=== PATIENT | male | born 1945 | race Caucasian/White ===

== ENCOUNTER 2023-08-15 15:16 | Inpatient (IN) | payer MEDICARE, OTHER, SELFPAY ==
[2023-08-15] VITALS (11 sets, daily range): BP systolic 80–146; BP diastolic 54–93; BMI 28.2; BMI 27.8
[2023-08-15 09:49] LABS: COVID-19 Antigen Negative (Negative)
[2023-08-15] MEDS: NSS 1000 ML IV (10:32)
--- NOTE | 2023-08-15 10:41 | ED.GENMED ---
History of Present Illness
<Amina Rust PA-C - Last Filed: 08/15/23 12:43>
General
Chief Complaint: Cold/Flu/URI Symptoms
Source: patient
Exam Limitations: none
Time Seen by Provider: 08/15/23 09:38
Nursing documentation reviewed up to this point in time: agreed with
Travel History
Have you had any contact with someone who has COVID-19?: No
Do you have any symptoms of coronavirus? Fever > 100 degrees, chills, cough, shortness of breath, sore throat, loss of taste or smell, muscle aches, or headache?: Yes
Symptoms:: fever
History of Present Illness
History of Present Illness:
pt is a 77 y/o M with h/o HTN, HLD, BPH
was in [place] from 08/02-08/12
on 08/14 started having chills, fatigue, headache, had mild diarrhea that resolved, anorexia, bodyaches
temps are anywhere from 101-105, they aren't sure how accurate the thermometer is
pt has been wiped out
he is vaccinated for flu and covid
pt has not had neck stiffness, confusion, sore throat, cp, sob, vomiting, urinary sypmtoms, rash.
pt last took ibuprfoen (he had only been taking 200 mg but at midnight took 400 mg) at midnight and then woke at 630 am with rigors.
he hasn't had any more ibuprofen
no tylenol was taken because they didn't have any
is here but she is asymptomatic
[place] were [place] a resort and did partake in raw fish and other foods there.
Past History
<Amina Rust PA-C - Last Filed: 08/15/23 12:43>
Past History
ED Past Medical History: HTN, Hypercholesterolemia and Other (BPH)
ED Past Surgical History: Appendectomy
Social History
Tobacco: Non-smoker
Alcohol: None
Drug: None
Personal:
Review of Systems
<Amina Rust PA-C - Last Filed: 08/15/23 12:43>
Review of Systems
Allergies reviewed?: Yes
All Other Systems: Not applicable
Phy Exam
<Amina Rust PA-C - Last Filed: 08/15/23 12:43>
Physical Exam
Physical Exam:
GENERAL: alert, nontoxic but appears mildly wiped out
EYE: pupils equal and reactive
NECK: Supple
ENT: b/l TM s clear, pharynx erythematous but no tonsillar hypertrophy or exudates
voice normal
toelrating secretions
no significant NATHALIA
CARDIAC: Regular rate and rhythm, no edema
LUNGS: Clear breath sounds bilaterally, no acute respiratory distress, no wheezes/rales/rhonchi, occ cough
ABDOMEN: Soft, without focal tenderness, no r/g, no cvat, normal bowel sounds
NEUROLOGICAL: Alert and oriented, no focal neuro deficits
SKIN: Warm and dry, skin intact.
very dry
MUSCULOSKELETAL: No edema, well perfused.
PSYCH: Normal and appropriate interaction.
Course
<Amina Rust PA-C - Last Filed: 08/15/23 12:43>
Orders/Labs/Results
Orders:
Orders
08/15/23 09:30
COVID-19 Antigen Urgent
Source: Nasal Swab
Monotest Urgent
Comment: ADD ON
Influenza A+B Rapid Molecular Urgent
AVIVA Source: Nasal Swab
Specimen Description:
08/15/23 10:13
Cardiac Monitoring- Treatment ONCE
0.9% Sodium Chloride 1000 ml [Nss] 1,000 ml IV NOW STA
08/15/23 10:14
Electrocardiogram (*1) Urgent
Reason for Study: Other
Other Reason for Exam: sepsis
EKG- Treatment ONCE
CR Chest - 2 Views Urgent
Comment:
Reason For Exam: fever
08/15/23 10:32
Complete Blood Count/With Diff Urgent
Comprehensive Metabolic Panel Urgent
Lactic Acid Q4H
Comment: CANCEL 2nd LACTIC ACID IF 1st LACTIC ACID IS LESS THAN 2
Blood Culture Q30M
AVIVA Source: Blood/Venous
Specimen Description:
Blood Culture Q30M
AVIVA Source: Blood/Venous
Specimen Description:
08/15/23 10:38
Rapid Strep Group A Urgent
AVIVA Source: Throat/Pharynx
Specimen Description:
Date Specimen was Collected: 08/15/23
Time Specimen was Collected: 10:17
08/15/23 11:01
Add On- LAB Urgent
Tests Added?: mono
08/15/23 11:56
Consult Infectious Disease [INFECTIOUS DISEASE CONSULT] Urgent
Consulting Provider: Lonnie Betts
Was physician already notified: Yes
08/15/23 11:58
Urinalysis Reflex To Culture Urgent
Date Specimen was Collected: 08/15/23
Time Specimen was Collected: 11:56
Urine Microscopic Reflex Cult Urgent
08/15/23 12:07
Acetaminophen [Tylenol] 1,000 mg PO NOW STA
Ibuprofen [Motrin] 600 mg PO NOW STA
08/15/23 12:11
Lactic Acid Q4H
Comment: CANCEL 2nd LACTIC ACID IF 1st LACTIC ACID IS LESS THAN 2
Malaria Smear [Blood Parasites] Urgent
AVIVA Source: Blood/Venous
Specimen Description:
Abnormal Lab Results
08/15/23 08/15/23
10:32 11:58
WBC 4.4 L 10^3/uL
(4.8-10.8)
MCH 31.2 H pg
(27.0-31.0)
Plt Count 111 L 10^3/uL
(130-400)
MPV 10.6 H fL
(7.4-10.4)
Absolute Lymphs (auto) 0.4 L 10^3/uL
(1.2-3.4)
Neutrophils % 77.1 H %
(42.2-75.2)
Lymphocytes % 9.5 L %
(20.5-51.1)
Monocytes % 12.0 H %
(1.7-9.3)
Glucose 114 H mg/dl
(70-99)
AST 60 H U/L
(17-59)
Urine Ketones 1+ A
(Negative)
Ur Occult Blood Reflex Trace A
(Negative)
Urine RBC 7-10 A /HPF
(0-2)
Urine Bacteria (Reflex) Few A
(Negative)
08/15/23 10:32
08/15/23 10:32
Vital Signs
Initial and Last Documented VS:
Initial Vital Signs
Temp Pulse Resp BP Pulse Ox
102.5 F H 94 20 143/86 92
08/15/23 09:21 08/15/23 09:21 08/15/23 09:21 08/15/23 09:21 08/15/23 09:21
Last Documented Vital Signs
Temp Pulse Resp BP Pulse Ox
102.2 F H 101 24 142/78 91
08/15/23 12:28 08/15/23 12:25 08/15/23 12:25 08/15/23 12:25 08/15/23 12:25
<Rick Patel MD - Last Filed: 08/15/23 12:11>
Orders/Labs/Results
Orders:
Orders
08/15/23 09:30
COVID-19 Antigen Urgent
Source: Nasal Swab
Monotest Urgent
Comment: ADD ON
Influenza A+B Rapid Molecular Urgent
AVIVA Source: Nasal Swab
Specimen Description:
08/15/23 10:13
Cardiac Monitoring- Treatment ONCE
0.9% Sodium Chloride 1000 ml [Nss] 1,000 ml IV NOW STA
08/15/23 10:14
Electrocardiogram (*1) Urgent
Reason for Study: Other
Other Reason for Exam: sepsis
EKG- Treatment ONCE
CR Chest - 2 Views Urgent
Comment:
Reason For Exam: fever
08/15/23 10:32
Complete Blood Count/With Diff Urgent
Comprehensive Metabolic Panel Urgent
Lactic Acid Q4H
Comment: CANCEL 2nd LACTIC ACID IF 1st LACTIC ACID IS LESS THAN 2
Blood Culture Q30M
AVIVA Source: Blood/Venous
Specimen Description:
Blood Culture Q30M
AVIVA Source: Blood/Venous
Specimen Description:
08/15/23 10:38
Rapid Strep Group A Urgent
AVIVA Source: Throat/Pharynx
Specimen Description:
Date Specimen was Collected: 08/15/23
Time Specimen was Collected: 10:17
08/15/23 11:01
Add On- LAB Urgent
Tests Added?: mono
08/15/23 11:56
Consult Infectious Disease [INFECTIOUS DISEASE CONSULT] Urgent
Consulting Provider: Lonnie Betts
Was physician already notified: Yes
08/15/23 11:58
Urinalysis Reflex To Culture Urgent
Date Specimen was Collected: 08/15/23
Time Specimen was Collected: 11:56
Urine Microscopic Reflex Cult Urgent
08/15/23 12:07
Acetaminophen [Tylenol] 1,000 mg PO NOW STA
Ibuprofen [Motrin] 600 mg PO NOW STA
08/15/23 12:11
Lactic Acid Q4H
Comment: CANCEL 2nd LACTIC ACID IF 1st LACTIC ACID IS LESS THAN 2
Malaria Smear [Blood Parasites] Urgent
AVIVA Source: Blood/Venous
Specimen Description:
Abnormal Lab Results
08/15/23 08/15/23
10:32 11:58
WBC 4.4 L 10^3/uL
(4.8-10.8)
MCH 31.2 H pg
(27.0-31.0)
Plt Count 111 L 10^3/uL
(130-400)
MPV 10.6 H fL
(7.4-10.4)
Absolute Lymphs (auto) 0.4 L 10^3/uL
(1.2-3.4)
Neutrophils % 77.1 H %
(42.2-75.2)
Lymphocytes % 9.5 L %
(20.5-51.1)
Monocytes % 12.0 H %
(1.7-9.3)
Glucose 114 H mg/dl
(70-99)
AST 60 H U/L
(17-59)
Urine Ketones 1+ A
(Negative)
Ur Occult Blood Reflex Trace A
(Negative)
Urine RBC 7-10 A /HPF
(0-2)
Urine Bacteria (Reflex) Few A
(Negative)
08/15/23 10:32
08/15/23 10:32
Vital Signs
Initial and Last Documented VS:
Initial Vital Signs
Temp Pulse Resp BP Pulse Ox
102.5 F H 94 20 143/86 92
08/15/23 09:21 08/15/23 09:21 08/15/23 09:21 08/15/23 09:21 08/15/23 09:21
Last Documented Vital Signs
Temp Pulse Resp BP Pulse Ox
102.2 F H 101 24 142/78 91
08/15/23 12:28 08/15/23 12:25 08/15/23 12:25 08/15/23 12:25 08/15/23 12:25
<Amina Rust PA-C - Last Filed: 08/15/23 12:43>
MDM/Problems Addressed
Differential Diagnosis Includes:
bacteremia, flu, covid, mono, pneumonia, uti, malaria, dengue fever, zika
MDM/Problems Addressed:
77 y/o M with fever, no source at the moment; feverst 101-105, normotensive; lightheaded with standing, looks slightly ill but not toxic; was in [place] for 10 days, just returned; wbc 4.4, lactate normal; flu covid strep neg; ua pending; cxr likely
atelectasis; no coughign to think it's pna but i guess early is possibility; ID consulted by me dr. betts, recommended peripheral smear for malaria which i ordered.
admit.
<Amina Rust PA-C - Last Filed: 08/15/23 12:43>
*Critical Care Note
Total Time (30-74mins, 75-104mins- exclusive of procedures): Not Applicable
ED Attending Note
<Amina Rust PA-C - Last Filed: 08/15/23 12:43>
-
Portions of this chart may have been created with voice recognition software.� Occasional wrong word or��sound alike� substitutions may have occurred due to the inherent limitations of voice recognition software.
<Rick Patel MD - Last Filed: 08/15/23 12:11>
ED Attending Note
I performed the substantive portion of visit, reviewed & personally made and approve the management plan that is documented in note by myself or JUDE.: Yes
I performed a history and physical exam of patient and discussed management with resident, I reviewed resident's note and agree with documented findings and plan of care.: Yes
ED Attending Note:
77-year-old male returned from 4 days ago. [facility]. Symptoms started 2 days ago with myalgias fevers chills. No significant cough or respiratory symptoms no urinary symptoms no rash.
On exam is mildly ill-appearing but nontoxic. A few rhonchi in the lung bases. Heart regular rate and rhythm. No murmur. Abdomen soft and nontender. Neck is supple. No rash. Mild pharyngeal erythema.
Impression: International travel to [place] fever chills myalgias weakness. Possible pneumonia at the lung base. Urinalysis pending. To consider dengue fever and other infectious issues related to [place]. Warrants inpatient management.
Discharge Plan
Departure
Patient Disposition: Admit
Date of Disposition: 08/15/23
Time of Disposition: 11:58
Admit to: Med/Surg
Presentation/result/management discussed w/ accepting MD/DO: Hospitalist
Patient with high blood pressure during this ER visit?: No
Condition: Fair
Covid-19: Negative COVID-19
Discharge Problem:
Fever
Prescriptions:
No Action
Paxlovid 150-100 mg tablets,dose pack
See Rx Instructions .ROUTE .COMPLEX Qty: 20 0RF
Rx Instructions:
orally per package directions
Referrals:
UNKNOWN - PT DOES,NOT KNOW [Family Provider] -
Interventions
Interventions:
*Risk Screen - Suicide Last Done: 08/15/23 10:42
*General Assessment Last Done: 08/15/23 10:42
*Neglect/Abuse Screening Last Done: 08/15/23 10:42
*ED COVID-19 Vaccine History Last Done: 08/15/23 10:42
ED- Pulmonary Assessment Last Done: 08/15/23 10:43
[2023-08-15 10:50] LABS: % Basophils 0.7 % (0-2); % Eosinophils 0.2 % (0-6); % Immature Granulocytes 0.5 % (0-0.5); % Lymphocytes 9.5 % (20.5-51.1); % Neutrophils 77.1 % (42.2-75.2); Absolute Lymphocytes 0.4 10^3/uL (1.2-3.4); Absolute Monocytes 0.5 10^3/uL (0.1-0.6); Absolute Neutrophils 3.4 10^3/uL (1.4-6.5); Hematocrit 43.7 % (39.0-52.0); Hemoglobin 15.7 g/dL (13.0-18.0); Mean Corp Hgb Conc. 35.9 g/dL (33.0-37.0); Mean Corpuscular Hgb 31.2 pg (27.0-31.0); Mean Corpuscular Volume 86.9 fL (80.0-94.0); Nucleated Red Blood Cells % 0 % (-); Red Blood Cell Count 5.03 10^6/uL (4.70-6.10); Red Cell Dist. Width 13.1 % (11.5-14.5); White Blood Cell Count 4.4 10^3/uL (4.8-10.8)
[2023-08-15 11:06] LABS: Platelet Count 111 10^3/uL (130-400)
[2023-08-15 11:07] LABS: ALT (SGPT) 45 U/L (0-50); AST (SGOT) 60 U/L (17-59); Albumin 4.1 g/dl (3.5-5.0); Alkaline Phosphatase 52 U/L (38-126); Blood Urea Nitrogen 16 mg/dl (9-20); Calcium 8.6 mg/dl (8.4-10.2); Carbon Dioxide 27 mmol/L (22-30); Chloride 105 mmol/L (98-107); Estimated Creatinine Clearance 74 ml/min; Glucose 114 mg/dl (70-99); Mean Platelet Volume 10.6 fL (7.4-10.4); Potassium 3.9 mmol/L (3.5-5.1); Sodium 136 mmol/L (135-145); Total Bilirubin 1.1 mg/dl (0.2-1.3); Total Protein 6.4 g/dl (6.3-8.2); eGFR > 60.00
[2023-08-15 12:00] LABS: Monotest Negative (Negative)
[2023-08-15] MEDS: TYLENOL 1000 MG PO (12:11)
[2023-08-15] MEDS: MOTRIN 600 MG PO (12:12)
[2023-08-15 12:14] LABS: Urine Albumin Trace (Neg - Trace); Urine Bilirubin Negative (Negative); Urine Character Clear (Clear); Urine Color Yellow; Urine Glucose Negative (Negative); Urine Ketone 1+ (Negative); Urine Leukocyte Negative (Negative); Urine Nitrite Negative (Negative); Urine Occult Blood Trace (Negative); Urine Urobilinogen Negative (Neg - 1+)
[2023-08-15 12:24] LABS: Urine Bacteria Few (Negative); Urine White Cell 0-2 /HPF (0-5)
[2023-08-15 12:42] LABS: Lactic Acid 1.2 mmol/L (0.7-2.0)
[2023-08-15 12:42] LABS: Lactic Acid 1.5 mmol/L (0.7-2.0)
[2023-08-15] MEDS: NSS 1000 IV ×2 (13:06→20:27)
--- NOTE | 2023-08-15 15:10 | HPS.HSE ---
Family Physician
-
Family Physician: NOT KNOW UNKNOWN - PT DOES
Chief Complaint
-
Fever
History of Present Illness
77-year-old gentleman visited the [place] between 08/02/23 to 08/10/23 for pleasure. He hired a air bnb around [facility] and stayed with family.
While he was there he had no issues. The
On he started to have fever chills. On he slept all day but was getting fever daily.
On she was again having fevers and slept all day. He had high fevers last evening again. With continued fever he came to the hospital.
He didnt participated in area outdoorsy activity. The only thing he can think unusual for food [place] is cerviche while he was there.
Yesterday he felt his stomach was little uncomfortable and had 1 loose stools. No nausea vomiting.
No skin rash or joint pains.
Denies any respiratory symptoms sore throat or cough. Before going to the vacation he was having some respiratory symptoms and had doxycycline prescribed by PCP.
Associated all this with severe headache which is generalized mostly like a bad hangover. Every day. No neck stiffness.
No symptoms of dysuria frequency or urinary retention.
None of the fellow travellers are sick.
Medical History
Past Medical History
Past Medical History: Reports HTN, Hypercholesterolemia and Other (bph)
Past Surgical History: Reports Appendectomy
Social History
Tobacco: Non-smoker
Alcohol: Occasional
Drug: None
Personal:
Living: With Family
Family History
Family History: Not pertinent
Allergies / Home Medications
Allergies reflects when Allergies were last updated in [employer].
Home Medications with original date entered in [employer]
Allergy/Medication List:
Allergies
Allergy/AdvReac Type Severity Reaction Status Date / Time
No Known Allergies Allergy Unverified 05/21/22 16:25
Home Medications
albuterol sulfate 90 mcg/actuation aerosol inhaler 2 puff inhalation R BIDPRN PRN sob 08/15/23
amlodipine 2.5 mg tablet 2.5 mg PO HS 08/15/23
finasteride 5 mg tablet 5 mg PO HS 08/15/23
ibuprofen 200 mg tablet (Advil) 200 mg PO Q6H PRN mild pain 08/15/23
rosuvastatin 20 mg tablet 20 mg PO HS 08/15/23
tamsulosin 0.4 mg capsule 0.4 mg PO HS 08/15/23
Review of Systems
-
A 12 point ROS was completed and negative except as noted: Yes
Physical Exam
Vital Signs
Vital Signs
Temp Pulse Resp BP Pulse Ox
100.5 F H 78 15 118/59 93
08/15/23 13:07 08/15/23 14:45 08/15/23 14:45 08/15/23 14:15 08/15/23 14:45
Physical Exam
General: No Apparent Distress
HEENT: Moist mucous membranes
Respiratory: Clear
Cardiac: S1/S2 and Regular Rhythm
GI: Soft, Non Tender, Non Distended and Normal Bowel Sounds
Skin: No Rash
Neuro: AO x 3
Psych: Calm
Laboratory Results
-
08/15/23 10:32
08/15/23 10:32
Laboratory Results
Lactic Acid 1.5 mmol/L (0.7-2.0) 08/15/23 12:11
Total Bilirubin 1.1 mg/dl (0.2-1.3) 08/15/23 10:32
AST 60 U/L (17-59) H 08/15/23 10:32
ALT 45 U/L (0-50) 08/15/23 10:32
Alkaline Phosphatase 52 U/L (38-126) 08/15/23 10:32
Data Reviewed
-
CT Scan: Report Reviewed by me (ct chest)
Lab Data: Labs Reviewed by me
Impression/Plan
-
Fever and returning traveler from [place].
Apart from systemic symptoms ,no focal symptoms. No skin rash, no diarrhea, no respiratory symptoms. He has mild thrombocytopenia and mildly elevated AST apart from that testing nondiagnostic so far.
UA non diagnostic for UTI
Chest CT no pneumonia /focal consolidation.
Flu/ COVID neg.
Malaria smear neg .
Follow BCX drawn in ER
With chills and sweat worried about increased insensible losses -start on IV fluids.
ID consulted for ER.
Follow for any new symptoms.
Tx symptoms
BPH -cw home meds
HTN -cw home meds
[2023-08-15 15:37] LABS: Procalcitonin 0.06 ng/ml (0.0-0.25)
--- NOTE | 2023-08-15 19:30 | PTCARENOTE ---
Patient received from ED via stretcher. Patient ambulated independently to bed, steady gait. Patient denies any pain/discomfort. Afebrile at this time. Education on infections provided to patient. Call mancia, fall precautions and room safety reviewed
with patient. Care ongoing.
[2023-08-15] MEDS: LOVENOX 40 MG SC (20:27)
[2023-08-15] MEDS: CRESTOR 20 MG PO (20:35)
[2023-08-15] MEDS: PROSCAR 5 MG PO (20:35)
[2023-08-15] MEDS: NORVASC 2.5 MG PO (20:36)
[2023-08-15] MEDS: FLOMAX 0.400000000000000022 MG PO (20:36)
[2023-08-15] MEDS: TYLENOL 650 MG PO (20:37)
--- NOTE | 2023-08-16 02:15 | PTCARENOTE ---
Patient states he no longer want to receive the IVF that are ordered. States he feels he is drinking enough and no longer wants them. This RN educated patient about being dehydrated r/t fevers and IVF being useful for any infection. Patient
verbalized an understanding but continued to refuse to have IVF infusing any longer. CAIN Horn notified of patient refusing. No new orders received. Care ongoing.
[2023-08-16] MEDS: TYLENOL 650 MG PO ×3 (03:47→20:00)
--- NOTE | 2023-08-16 05:16 | W.PN.UPDATE ---
Update Note
Progress Note Update
Notified by nurse that despite education pt declines any further ivf. states he is eating and drinking adequately.
[2023-08-16 05:49] LABS: Hematocrit 38.5 % (39.0-52.0); Mean Corp Hgb Conc. 36.4 g/dL (33.0-37.0); Mean Corpuscular Hgb 31.2 pg (27.0-31.0); Mean Corpuscular Volume 85.7 fL (80.0-94.0); Platelet Count 81 10^3/uL (130-400); Red Blood Cell Count 4.49 10^6/uL (4.70-6.10); Red Cell Dist. Width 12.9 % (11.5-14.5); White Blood Cell Count 3.6 10^3/uL (4.8-10.8)
[2023-08-16 06:00] VITALS: BMI 27.8
[2023-08-16 06:09] LABS: ALT (SGPT) 38 U/L (0-50); AST (SGOT) 61 U/L (17-59); Albumin 3.1 g/dl (3.5-5.0); Alkaline Phosphatase 40 U/L (38-126); Blood Urea Nitrogen 17 mg/dl (9-20); Carbon Dioxide 21 mmol/L (22-30); Chloride 106 mmol/L (98-107); Estimated Creatinine Clearance 106 ml/min; Glucose 120 mg/dl (70-99); Potassium 3.9 mmol/L (3.5-5.1); Sodium 136 mmol/L (135-145); Total Bilirubin 0.9 mg/dl (0.2-1.3); Total Protein 5.3 g/dl (6.3-8.2); eGFR > 60.00
[2023-08-16 07:00] VITALS: BP 125/76
[2023-08-16] MEDS: TORADOL 15 MG IV (10:51)
--- NOTE | 2023-08-16 11:32 | CON.ID ---
Consultation
-
Date/Time Consultation Requested: 08/15/23 11:56
Date/Time Consultation Performed: 08/16/23 11:32
Requesting Provider: Barrera
Performing Provider: Dr Rose
Reason for Consultation: fever in returned traveler - [place] - [place]
Chief Complaint / Past History
Chief Complaint
fever - returned traveler
History of Present Illness
Mr Hayes is a 77 year old male without significant medical history who presents here for a fever and chills beginning with 1 week of travel to [place] ([place]). Travel began 08/02 and continued through 08/10; he stayed at a vacation rental with family
where he drank alcohol, swam in the ocean, went out on a boat, no time in the jungle. He felt well for the trip, two days after return on 08/12 he developed fevers, chills, malaise and after two days of fevers he presented to the hospital. Day 2 of
illness some GI upset and 1 loose stool, no nausea or vomiting. Also severe headache - frontal. Does recall eating cerviche. No other sick travelers among the group. No skin rashes or joint pains. Of note no rash, joint pain, dysuria, urinary
frequency, retention, or neck stiffness.
Since arrival here he was initially febrile to 102.5 orally, bp stable, HR once above 101 while febrile - otherwise 80-90s, wbc on arrivla 4.4 now 3.6, hgb 14.0, plt 81 (declining), L shift noted on arrival and eos were present, cr initially 1.0 now
0.7, k 3.9, t bili 0.9, ast 61, alt 38, alk phos 40, ua no pyuria, covid and influenza negative, CT chest PE study: no PE - atelectasis noted, CXR: COPD and atelectasis, single blood parasites smear negative - no others sent, blood cultures x2 no
growth to date, qtc 441, not currently on antibiotics. Negative tourniquet test
Past History
Additional Past Medical History:
BPH
Heart murmur - ?
HLD
Additional Past Surgical History:
appendectomy
Allergy History:
No Known Allergies Allergy (Unverified 05/21/22 16:25)
Medications Reviewed: Yes
Social History
Tobacco: Non-Smoker
Alcohol: Occasional
Drug: None
Family History
Family History: Not Pertinent
Review of Systems
Review of Systems
General: Negative Fever or Chills
All systems: All other systems were reviewed and were negative
Vital Signs
Temp Pulse Resp BP Pulse Ox
99.5 F 92 17 125/76 94
08/16/23 07:00 08/16/23 07:00 08/16/23 07:00 08/16/23 07:00 08/16/23 07:00
Physical Exam
Physical Exam
Constitutional: No Acute Distress
Cardiovascular: Regular Rate, S1/S2 and Murmur (loudest at RUSB); Negative Rub or Peripheral Edema
Pulmonary: Clear and Symmetric; Negative Wheezes, Rales or Rhonchi
Gastrointestinal: Soft, Non Tender, Non Distended and Normal Bowel Sounds
Skin: Warm and Dry; Negative Rash (negative tourniquet test) or Jaundice
Lab / Diagnostic Study Results
08/16/23 05:17
08/16/23 05:17
Abs Immat Gran (auto) 0.0 10^3/uL (0-0.05) 08/15/23 10:32
Absolute Neuts (auto) 3.4 10^3/uL (1.4-6.5) 08/15/23 10:32
Absolute Lymphs (auto) 0.4 10^3/uL (1.2-3.4) L 08/15/23 10:32
Absolute Monos (auto) 0.5 10^3/uL (0.1-0.6) 08/15/23 10:32
Absolute Basos (auto) 0.0 10^3/uL (0-0.2) 08/15/23 10:32
Immature Gran % 0.5 % (0-0.5) 08/15/23 10:32
Neutrophils % 77.1 % (42.2-75.2) H 08/15/23 10:32
Lymphocytes % 9.5 % (20.5-51.1) L 08/15/23 10:32
Monocytes % 12.0 % (1.7-9.3) H 08/15/23 10:32
Eosinophils % 0.2 % (0-6) 08/15/23 10:32
Basophils % 0.7 % (0-2) 08/15/23 10:32
Lactic Acid 1.5 mmol/L (0.7-2.0) 08/15/23 12:11
Procalcitonin 0.06 ng/ml (0.0-0.25) 08/15/23 14:25
Microbiology Results
Micro:
08/15/23 10:38 Streptococcus Screen (AVIVA) - Preliminary
Throat/Pharynx Culture in Progress
Streptococcus Rapid Screen - Preliminary
Rapid Strep Screen (Group A) Negative
08/15/23 10:32 Blood Culture - Preliminary
Blood/Venous No Growth in 24 hours- Final report to follow
08/15/23 10:32 Blood Culture - Preliminary
Blood/Venous No Growth in 24 hours- Final report to follow
08/15/23 12:11 Blood Parasites Smear - Preliminary
Blood/Venous
08/15/23 09:30 Influenza Types A & B (ALISHA) - Final
Nasal Swab Negative for Influenza A & B, NAAT
Negative results must be combined with clinical observations
and patient history.
Nucleic Acid Amplification test (NAAT)performed on the
[employer] platform.
Assessment / Plan
Fever in Returned Traveler - within 1 week of return
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
- no travel care prior to this visit, did have yellow fever vaccine about 1 year ago but no other travel related vaccines 'I only got what was required'
- rare cases of malaria reported in [facility] - repeat malaria smear now and in am - 1st smear negative, low clinical concern
- note covid infection about 3 months ago, negative ag this visit; influenza negative
- blood cultures x2 no growth to date - send a third set
- has a known heart murmur - last evaluated in [place]
- ua negative
- stool culture (specific, not sensitive)
- enteric fever (typhoid) on differential; supportive is GI upset, relative bradycardia and severe headache, L shift; dengue less likely without petechia, normal LFTs - care would be supportive
- start ciprofloxacin empirically x7 days
- if malaria smear neg x3 could consider dc in the AM with 7 day course of ciprofloxacin and follow up with ID
--- NOTE | 2023-08-16 12:29 | CM ---
Chart reviewed. Spoke with pt and at bedside.
New to area - recently moved
Pt lives with in 2 story home
Independent, drives
No DME
Denies SNF/HH
Has ride at d/c
Discussed IMM
PCP - has appt on Thurs - unsure of name
Pharm - [facility]
Plan - anticipate home to previous setting - no needs
--- NOTE | 2023-08-16 12:32 | W.PN.HOSP.TC ---
Today's Communication/Plan
-
Follow fever curve and SWAIN on cipro
Symptomatic tx to continue
Assessment / Plan
Assessment / Plan
Fever and returning traveler from [place].
Apart from systemic symptoms no focal symptoms; he did have some abdo discomfort but no diarrhea . No skin rash, no diarrhea, no respiratory symptoms.� He has mild thrombocytopenia and mildly elevated AST apart from that testing nondiagnostic so far.
UA non diagnostic for UTI
Chest CT no pneumonia /focal consolidation.
Flu/ COVID neg.
Malaria smear neg .
Follow BCX drawn in ER -neg so far
With agranulocytopenia and progressive thrombocytopenia ,viral in ddx.
With vague abdominal complaints, SWAIN, relative gael - parathyroid GI illnesses in ddx per.Pt initiated on Cipro.
If persistent fevers and SWAIN -consider LP
Follow for any new symptoms.
Tx symptoms
BPH -cw home meds
HTN -cw home meds
Anticipated Discharge: 24 - 48 hours
Subjective/Interval History
-
Date of Service: August 16, 2023
Continued fevers. Continues to feel unwell. Continued headache.
Headache is frontal and area. Continuous moderate in intensity. No neck pain. No visual symptoms.
No abdominal pain no nausea vomiting. No appetite.
Objective Data
-
Labs:
Laboratory Results
08/16/23
05:17
WBC 3.6 L
Hgb 14.0
Hct 38.5 L
Plt Count 81 L D
Sodium 136
Potassium 3.9
Chloride 106
Carbon Dioxide 21 L
BUN 17
Creatinine 0.7
Glucose 120 H
Calcium 8.0 L
Total Bilirubin 0.9
AST 61 H
ALT 38
Alkaline Phosphatase 40
Vital Signs:
Vital Signs
Temp Pulse Resp BP Pulse Ox
99.5 F 92 17 125/76 94
08/16/23 07:00 08/16/23 07:00 08/16/23 07:00 08/16/23 07:00 08/16/23 07:00
I&O
08/15/23 08/16/23 08/17/23
06:59 06:59 06:59
Intake Total 700 / 700
Balance 700 / 700
Review of Systems
-
EENT: Denies Sore Throat
Respiratory: Denies Cough or Trouble Breathing
Cardiac: Denies Chest Pain
Genitourinary: Denies Dysuria
Neuro: Denies Dizzy
Physical Exam
-
General: No Apparent Distress
HEENT: Moist Mucous Membranes
Respiratory: Clear to Auscultation
Cardiac: Regular Rhythm and S1/S2
GI: Soft and Nontender
Neuro: AO x 3 and Other (No neck stiffness)
Psych: Calm
Data Reviewed
-
Labs: Labs Reviewed by me
[2023-08-16] MEDS: CIPRO 500 MG PO ×2 (13:42→20:00)
[2023-08-16 15:00] VITALS: BP 112/61
[2023-08-16] MEDS: LOVENOX 40 MG SC (17:10)
[2023-08-16] MEDS: FLOMAX 0.400000000000000022 MG PO (22:31)
[2023-08-16] MEDS: NORVASC 2.5 MG PO (22:31)
[2023-08-16] MEDS: PROSCAR 5 MG PO (22:31)
[2023-08-16] MEDS: CRESTOR 20 MG PO (22:31)
[2023-08-16 23:15] VITALS: BP 116/68
[2023-08-17] MEDS: TYLENOL 650 MG PO (03:19)
[2023-08-17 05:29] LABS: Hematocrit 40.2 % (39.0-52.0); Hemoglobin 14.3 g/dL (13.0-18.0); Mean Corp Hgb Conc. 35.6 g/dL (33.0-37.0); Mean Corpuscular Hgb 30.8 pg (27.0-31.0); Mean Corpuscular Volume 86.5 fL (80.0-94.0); Mean Platelet Volume 11.3 fL (7.4-10.4); Platelet Count 78 10^3/uL (130-400); Red Blood Cell Count 4.65 10^6/uL (4.70-6.10); Red Cell Dist. Width 12.8 % (11.5-14.5); White Blood Cell Count 2.7 10^3/uL (4.8-10.8)
[2023-08-17 05:52] LABS: ALT (SGPT) 38 U/L (0-50); AST (SGOT) 67 U/L (17-59); Alkaline Phosphatase 42 U/L (38-126); Blood Urea Nitrogen 14 mg/dl (9-20); Calcium 8.1 mg/dl (8.4-10.2); Carbon Dioxide 26 mmol/L (22-30); Chloride 104 mmol/L (98-107); Estimated Creatinine Clearance 82 ml/min; Glucose 107 mg/dl (70-99); Potassium 3.6 mmol/L (3.5-5.1); Sodium 136 mmol/L (135-145); Total Bilirubin 0.7 mg/dl (0.2-1.3); Total Protein 5.2 g/dl (6.3-8.2); eGFR > 60.00
[2023-08-17] MEDS: ProAIR HFA INHALER 2 PUFF INH (06:37)
[2023-08-17 07:00] VITALS: BP 99/68
[2023-08-17] MEDS: CIPRO 500 MG PO (07:13)
--- NOTE | 2023-08-17 11:25 | W.PN.HOSP.TC ---
Today's Communication/Plan
-
DC planning
Assessment / Plan
Assessment / Plan
Fever and returning traveler from [place].
Apart from systemic symptoms no focal symptoms; he did have some abdo discomfort but no diarrhea . No skin rash, no diarrhea, no respiratory symptoms.� He has mild thrombocytopenia and mildly elevated AST apart from that testing nondiagnostic so far.
UA non diagnostic for UTI
Chest CT no pneumonia /focal consolidation.
Flu/ COVID neg.
Malaria smear neg .
Follow BCX drawn in ER -neg so far
With agranulocytopenia and progressive thrombocytopenia ,viral in ddx.
With vague abdominal complaints, SWAIN, relative gael - parathyroid GI illnesses in ddx per.Pt initiated on Cipro.
Patient now with improved symptoms in general, improved appetite, resolution of headache I would continue with empirical treatment with ciprofloxacin and consider follow-up as an outpatient.
He would not require to follow-up on his platelets on discharge.
BPH -cw home meds
HTN -cw home meds
Will plan on DC after seen by ID.
Anticipated Discharge: Today
Subjective/Interval History
-
Date of Service: August 17, 2023
Feeling improved.
No further headache.
Improved fever.
Improved appetite.
Inquiring about home.
Last night he had episode where he was short of breath which he states got relieved after respiratory treatments. He uses inhaler twice a day at the most at home.
Today he has no cough, shortness of breath or chest pain.
Objective Data
-
Labs:
Laboratory Results
08/17/23
05:05
WBC 2.7 L
Hgb 14.3
Hct 40.2
Plt Count 78 L
Sodium 136
Potassium 3.6
Chloride 104
Carbon Dioxide 26
BUN 14
Creatinine 0.9
Glucose 107 H
Calcium 8.1 L
Total Bilirubin 0.7
AST 67 H
ALT 38
Alkaline Phosphatase 42
Vital Signs:
Vital Signs
Temp Pulse Resp BP Pulse Ox
98.4 F 134 18 99/68 96
08/17/23 11:00 08/17/23 07:00 08/17/23 07:00 08/17/23 07:00 08/17/23 07:00
I&O
08/16/23 08/17/23 08/18/23
06:59 06:59 06:59
Intake Total 700 / 700 1320 / 1320
Balance 700 / 700 1320 / 1320
Review of Systems
-
Constitutional: Denies Chills
EENT: Denies Sore Throat
Abdomen/GI: Denies Abdominal Pain
Neuro: Denies Dizzy
Physical Exam
-
General: No Apparent Distress
HEENT: Moist Mucous Membranes
Respiratory: Clear to Auscultation; Negative Wheezes or Crackles
Cardiac: Regular Rhythm and S1/S2; Negative Tachycardic
GI: Soft, Nontender, Nondistended and Normal Bowel Sounds
Neuro: AO x 3
Psych: Calm
Data Reviewed
-
Labs: Labs Reviewed by me
--- NOTE | 2023-08-17 14:17 | W.DS.TRANS ---
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
-
Discharge Instructions:
Discharge Diagnosis/Procedures Fever in returning traveler from [place]
Diet Regular
Activity As tolerated
Driving Restrictions As prior to admission
Blood Work Lab work as requested by ID doctor
Instructions:
Stand-Alone Forms:
Changes to Home Medications: Yes
Discharge Medications:
DC Medications w/original date entered in [facility]
albuterol sulfate 90 mcg/actuation aerosol inhaler 2 puff inhalation R BIDPRN PRN sob 08/15/23
amlodipine 2.5 mg tablet 2.5 mg PO HS Blood Pressure 08/15/23
finasteride 5 mg tablet 5 mg PO HS Urinary Issue 08/15/23
ibuprofen 200 mg tablet (Advil) 200 mg PO Q6H PRN mild pain 08/15/23
rosuvastatin 20 mg tablet 20 mg PO HS High Cholesterol 08/15/23
tamsulosin 0.4 mg capsule 0.4 mg PO HS Urinary Issue 08/15/23
acetaminophen 325 mg tablet 650 mg PO Q4HPRN PRN mild pain /fever >100.4 #1 tab 08/17/23
ciprofloxacin HCl 500 mg tablet 500 mg PO BID #12 tabs 08/17/23
Home Medication Changes
New medication ciprofloxacin
Pending Results: No
--- NOTE | 2023-08-17 14:44 | CM ---
Patient seen at bedside with , plan home with no needs. IMM completed and signed form placed on chart. CM will continue to follow for discharge planning needs.
Plan; home with no needs.
--- NOTE | 2023-08-17 16:48 | W.DCSUMMARY ---
Discharge Summary
Discharge Data
Date of Admission: 08/15/23
Date of Discharge: 08/17/23
-
Pending Results: No
Hospital Course
Primary diagnosis:
Fever and returning traveler from [place]
Clinical suspicion for typhoidal illness
Secondary diagnosis:
Essential hypertension
Benign prostatic hypertension
Hospital course:
Patient Presented with fever after locating from [place]. He presented within 2 days of return. He had vague abdominal discomfort and loose stools but no diarrhea. He had accompanying headache. Apart from the symptoms he was nonfocal. There are
no skin rash or respiratory symptoms or symptoms. He had mild thrombocytopenia, granulocytopenia with mild AST elevation.
His UA was nondiagnostic for UTI. Chest CT showed no PE nor any pneumonia. Flu and COVID test was negative. Malaria smear twice was negative. Blood cultures were negative.
Based on the clinical presentation control of typhoid in the last several start on ciprofloxacin with resolution of his fevers and improvement in clinical symptoms of headache. His platelets did drop to 78,000. Dengue is a possiblity but with
cipro response not sure .
Was seen by ID and with clinical improvement plan is to continue empirical ciprofloxacin treatment and follow lab data as an outpatient.
Consultants on board:
Infectious disease-Dr. Rose
Discharge Plan
-
Patient Disposition: Home (Routine Discharge)
Discharge Diagnosis/Procedures: Fever in returning traveler from [place]
Diet: Regular
Activity: As tolerated
Driving Restrictions: As prior to admission
Blood Work: Lab work as requested by ID doctor
Referrals:
UNKNOWN - PT DOES,NOT KNOW [Family Provider] -
Prescriptions:
New
ciprofloxacin HCl 500 mg Tablet
500 mg PO BID Qty: 12 0RF
acetaminophen 325 mg Tablet
650 mg PO Q4HPRN PRN (Reason: mild pain /fever >100.4) Qty: 1 0RF
Continued
amlodipine 2.5 mg Tablet
2.5 mg PO HS
tamsulosin 0.4 mg Capsule
0.4 mg PO HS
ibuprofen [Advil] 200 mg Tablet
200 mg PO Q6H PRN (Reason: mild pain)
albuterol sulfate 90 mcg/actuation Hfa Aerosol Inhaler
2 puff INHALATION R BIDPRN PRN (Reason: sob)
finasteride 5 mg Tablet
5 mg PO HS
rosuvastatin 20 mg Tablet
20 mg PO HS
Discharge Orders:
Discharge Patient (As Directed); Ordered 08/17/23
Ordered By: Donny Goodwin
Discharge Date and Time
Discharge Date/Time: 08/17/23 14:34
--- NOTE | 2023-08-17 18:41 | W.PN.ID1 ---
Date of Service
Date of Service: August 17, 2023
Today's Communication
cbc in 1 week
cipro
for dc
Assessment / Plan
Fever in Returned Traveler - within 1 week of return
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
- malaria smear negative x3
- continue empiric cipro x7 days - clinically improving
- if fevers persist more than 5 days patient to call for ID follow up
- cbc in 1 week
- follow up as needed
Chief Complaint
-: Fever
Subjective / Review of Systems
fever curve improving
bp stable
mild leukocytosis
cr stable
blood cultures no growth
'I feel better'
headache gone
Vital Signs / Physical Exam
Vital Signs
Vital Signs
Temp Pulse Resp BP Pulse Ox
98.4 F 134 18 99/68 96
08/17/23 11:00 08/17/23 07:00 08/17/23 07:00 08/17/23 07:00 08/17/23 07:00
Physical Exam
Constitutional: No Acute Distress
Cardiovascular: Regular Rate and S1/S2; Negative Murmur or Rub
Pulmonary: Clear and Symmetric; Negative Wheezes or Rales
Gastrointestinal: Soft, Non Tender, Non Distended and Normal Bowel Sounds
Skin: Warm and Dry; Negative Rash or Jaundice
Objective Data
Lab Data
Lab Results
08/17/23 05:05
08/17/23 05:05
Estimated Creat Clear 82 ml/min 08/17/23 05:05
Lactic Acid 1.5 mmol/L (0.7-2.0) 08/15/23 12:11
Total Bilirubin 0.7 mg/dl (0.2-1.3) 08/17/23 05:05
AST 67 U/L (17-59) H 08/17/23 05:05
ALT 38 U/L (0-50) 08/17/23 05:05
Alkaline Phosphatase 42 U/L (38-126) 08/17/23 05:05
Most recent labs reviewed.
Micro Results:
08/16/23 13:11 Blood Culture - Preliminary
Blood/Venous No Growth in 24 hours- Final report to follow
08/15/23 10:38 Streptococcus Screen (AVIVA) - Final
Throat/Pharynx No Beta Hemolytic Streptococci Isolated
Streptococcus Rapid Screen - Final
Rapid Strep Screen (Group A) Negative
08/16/23 12:52 Blood Culture - Preliminary
Blood/Venous No Growth in 24 hours- Final report to follow
08/16/23 12:00 Salmonella/Shigella Culture - Preliminary
Feces/Stool Culture in Progress
Campylobacter Culture - Preliminary
Culture in Progress
Shiga Toxin Test - Pending
08/17/23 05:05 Blood Parasites Smear - Final
Blood/Venous
08/15/23 10:32 Blood Culture - Preliminary
Blood/Venous No Growth in 48 hours- Final report to follow
08/15/23 10:32 Blood Culture - Preliminary
Blood/Venous No Growth in 48 hours- Final report to follow
08/16/23 11:59 Blood Parasites Smear - Final
Blood/Venous
08/15/23 12:11 Blood Parasites Smear - Preliminary
Blood/Venous
08/15/23 09:30 Influenza Types A & B (ALISHA) - Final
Nasal Swab Negative for Influenza A & B, NAAT
Negative results must be combined with clinical observations
and patient history.
Nucleic Acid Amplification test (NAAT)performed on the
[employer] platform.
Care Review
Plan reviewed with: Physician (Dr Buddy aguila)
== END 2023-08-17 14:34 | disposition home or self-care (01) | DRG 869 ==
LOC: 3 WEST ACU 15:16
PROVIDERS: Physician Assistant; ADMITTING PHYSICIAN Internal Medicine; CONSULT PHYSICIAN Internal Medicine Infectious Disease; EMERGENCY PHYSICIAN Emergency Medicine
DX: A01.00 Typhoid fever, unspecified (principal); D69.6 Thrombocytopenia, unspecified; D70.9 Neutropenia, unspecified; I10 Essential (primary) hypertension; N40.0 Benign prostatic hyperplasia without lower urinary tract symptoms
CPT/HCPCS: 71046; 71275; 80053; 81003; 81015; 83605; 84145; 85025; 85027; 86308; 87015; 87040; 87045; 87046; 87070; 87207; 87427; 87502; 87811; 87880; 93005; 94640; 96361; 96374; 99285; Q9967

== ENCOUNTER 2024-07-23 13:29 | Emergency (ER) | payer MEDICARE, OTHER, SELFPAY ==
[2024-07-23] VITALS (10 sets, daily range): BP systolic 108–149; BP diastolic 61–93; BMI 28.0
--- NOTE | 2024-07-23 13:58 | ED.GENMED ---
ED Provider Triage
<Jayjay Clayton PA-C - Last Filed: 07/23/24 13:58>
-
Patient seen by provider in Triage?: Seen in Triage
Attestation: A medical screening examination has been initiated by a qualified medical provider. Based on the assessment performed at this time, it has been determined that an emergent medical condition may exist and the patient has been informed
that further medical evaluation and possible additional diagnostic testing may be needed.
HPI: 78-year-old male presents to the emergency department for evaluation of difficulty ambulating, right leg weakness, and gait instability for the past 10 days. Seems to be worsening since onset. Saw his primary care provider who recommended
neurology follow-up but did not send him for any outpatient testing. Denies any headache, vision changes, chest pain, shortness of breath. does report some difficulty with speech on occasion
GENERAL: Alert , in no apparent distress
EYE: No visual abnormalities.
NECK: Trachea midline
ENT: No visible abnormalities.
LUNGS: No acute respiratory distress
NEUROLOGICAL: Alert and oriented
SKIN: Skin intact. No visible changes.
MUSCULOSKELETAL: Moving extremities normally
PSYCH: Normal and appropriate interaction.
This is a medical evaluation conducted in person to initiate diagnostic evaluation and provide initial therapeutics. Please see further documentation by the treating clinician.
History of Present Illness
<Jayjay Clayton PA-C - Last Filed: 07/23/24 13:58>
General
Chief Complaint: Weakness
Time Seen by Provider: 07/23/24 14:58
<Arnel Dotson DO - Last Filed: 07/23/24 22:35>
General
Source: patient and spouse
Exam Limitations: none
History of Present Illness
History of Present Illness:
This is a 78-year-old male who presents with over a week of changes in his gait, speech disturbance and generalized weakness. Patient states that he also gets intermittent and occasional headaches. The states that speech is normally crisp and
he speaks fast but recently has been speaking more slowly. Went to see his doctor who advised him to see a neurologist. The patient denies fevers. Denies numbness or tingling. No injury. No vision changes. Patient states nothing changed today
but he just became more concerned.
Past History
<Jayjay Clayton PA-C - Last Filed: 07/23/24 13:58>
Past History
ED Past Medical History: HTN, Hypercholesterolemia and Other (BPH)
ED Past Surgical History: Appendectomy
Social History
Tobacco: Non-smoker
Alcohol: None
Drug: None
Personal:
Phy Exam
<Arnel Dotson DO - Last Filed: 07/23/24 22:35>
Physical Exam
Physical Exam:
CONSTITUTIONAL Patient alert and oriented to person, place and time. Well-appearing. Vital signs reviewed.
HEAD atraumatic, normocephalic.
EYES eyelids normal to inspection, Extraocular muscles intact, Conjunctiva normal, Sclera normal.
NECK normal range of motion, Trachea midline, no jugular venous distention.
RESPIRATORY CHEST No respiratory distress noted, Chest expansion equal
ABDOMEN No distention.
BACK normal inspection, no obvious deformities
UPPER EXTREMITY range of motion normal, Motor strength normal, no cyanosis, no edema.
LOWER EXTREMITY range of motion normal, Motor strength normal, no cyanosis, no edema.
NEURO No focal motor deficits, [place] coma scale 15, Memory normal, Cranial Nerves intact to screening exam. Normal [id number] and normal [id number]. Speech is a little bit broken up at times but no true aphasia or dysarthria
SKIN skin warm, dry, and normal in color.
Course
<Jayjay Clayton PA-C - Last Filed: 07/23/24 13:58>
Orders/Labs/Results
Orders:
Orders
07/23/24 13:56
CT Head W/o Iv Contrast Urgent
Comment:
Reason For Exam: R leg weakness, difficutly walking
07/23/24 13:57
Electrocardiogram (*1) Urgent
Reason for Study: TIA/Stroke
EKG- Treatment ONCE
07/23/24 14:16
Complete Blood Count/With Diff Urgent
Comprehensive Metabolic Panel Urgent
07/23/24 18:20
Levetiracetam Injectable [Keppra] 500 mg IV NOW STA
07/23/24 18:37
Prothrombin Time Urgent
Abnormal Lab Results
07/23/24
14:16
MCH 31.6 H pg
(27.0-31.0)
Chloride 108 H mmol/L
(98-107)
Glucose 110 H mg/dl
(70-99)
07/23/24 14:16
07/23/24 14:16
Vital Signs
Initial and Last Documented VS:
Initial Vital Signs
Temp Pulse Resp BP Pulse Ox
98.0 F 80 16 132/87 98
07/23/24 13:53 07/23/24 13:53 07/23/24 13:53 07/23/24 13:53 07/23/24 13:53
Last Documented Vital Signs
Temp Pulse Resp BP Pulse Ox
98.0 F 74 14 110/74 94
07/23/24 13:53 07/23/24 22:15 07/23/24 22:15 07/23/24 22:00 07/23/24 22:15
<Arnel Dotson, DO - Last Filed: 07/23/24 22:35>
Orders/Labs/Results
Orders:
Orders
07/23/24 13:56
CT Head W/o Iv Contrast Urgent
Comment:
Reason For Exam: R leg weakness, difficutly walking
07/23/24 13:57
Electrocardiogram (*1) Urgent
Reason for Study: TIA/Stroke
EKG- Treatment ONCE
07/23/24 14:16
Complete Blood Count/With Diff Urgent
Comprehensive Metabolic Panel Urgent
07/23/24 18:20
Levetiracetam Injectable [Keppra] 500 mg IV NOW STA
07/23/24 18:37
Prothrombin Time Urgent
Abnormal Lab Results
07/23/24
14:16
MCH 31.6 H pg
(27.0-31.0)
Chloride 108 H mmol/L
(98-107)
Glucose 110 H mg/dl
(70-99)
07/23/24 14:16
07/23/24 14:16
Vital Signs
Initial and Last Documented VS:
Initial Vital Signs
Temp Pulse Resp BP Pulse Ox
98.0 F 80 16 132/87 98
07/23/24 13:53 07/23/24 13:53 07/23/24 13:53 07/23/24 13:53 07/23/24 13:53
Last Documented Vital Signs
Temp Pulse Resp BP Pulse Ox
98.0 F 74 14 110/74 94
07/23/24 13:53 07/23/24 22:15 07/23/24 22:15 07/23/24 22:00 07/23/24 22:15
<Arnel Dotson DO - Last Filed: 07/23/24 22:35>
MDM/Problems Addressed
Differential Diagnosis Includes:
MS, Parkinson's, brain tumor, stroke, hydrocephalus, electrolyte imbalance
MDM/Problems Addressed:
Large subdural hematoma
<Arnel Dotson DO - Last Filed: 07/23/24 22:35>
*Radiology
Radiology exam reviewed: preliminary read by ED provider (subdural hematoma)
*Pulse Oximetry
Patient hypoxic: no
*EKG
Interpreted by ED Provider?: Yes
Interpretation: normal
Rate: normal
Rhythm: sinus
[place]: normal axis
QRS Pattern: normal QRS
Ischemia: no ischemia
*Application Processor Interpretation
Rate: normal
Interpretation: normal
Rhythm: sinus
*Critical Care Note
Total Time (30-74mins, 75-104mins- exclusive of procedures): 45 minutes
Data Reviewed
Source: patient and spouse
Further Testing Considered But Not Given:
Consider C-spine imaging with patient denies adamantly any trauma
<Arnel Dotson DO - Last Filed: 07/23/24 22:35>
Patient Management
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
Escalation/DeEscalation of care consider admission/obs:
CT shows large subdural. Patient is awake and alert and moving all extremities. Will transfer [facility]. Patient adamantly denies any obvious trauma.
ED Attending Note
<Jayjay Clayton PA-C - Last Filed: 07/23/24 13:58>
-
Portions of this chart may have been created with voice recognition software.� Occasional wrong word or��sound alike� substitutions may have occurred due to the inherent limitations of voice recognition software.
Discharge Plan
Departure
Patient Disposition: Acute Care Hospital
Date of Disposition: 07/23/24
Time of Disposition: 17:53
Discharge Problem:
Acute subdural hematoma
Prescriptions:
No Action
amlodipine 2.5 mg Tablet
2.5 mg PO HS
tamsulosin 0.4 mg Capsule
0.4 mg PO HS
ibuprofen [Advil] 200 mg Tablet
200 mg PO Q6H PRN (Reason: mild pain)
albuterol sulfate 90 mcg/actuation Hfa Aerosol Inhaler
2 puff INHALATION R BIDPRN PRN (Reason: sob)
finasteride 5 mg Tablet
5 mg PO HS
rosuvastatin 20 mg Tablet
20 mg PO HS
ciprofloxacin HCl 500 mg Tablet
500 mg PO BID Qty: 12 0RF
acetaminophen 325 mg Tablet
650 mg PO Q4HPRN PRN (Reason: mild pain /fever >100.4) Qty: 1 0RF
Referrals:
Willard Christopher PA [Family Provider] -
Hospital Transfer
Other hospital: [facility]
I certify that the patient requires transfer: Yes
Discussed case with accepting physician: Neurosurgery
Reason for transfer: higher level of care
Interventions
Interventions:
*Risk Screen - Suicide Last Done: 07/23/24 13:53
*Neglect/Abuse Screening Last Done: 07/23/24 13:53
ED- Cardiac Assessment Last Done: 07/23/24 14:12
ED- Neurological Assessment Last Done: 07/23/24 14:12
ED- Pulmonary Assessment Last Done: 07/23/24 14:12
Discharge Date and Time
Print Language: UKRAINIAN
[2024-07-23 14:35] LABS: % Basophils 0.6 % (0-2); % Eosinophils 1.9 % (0-6); % Immature Granulocytes 0.2 % (0-0.5); % Lymphocytes 23.8 % (20.5-51.1); % Monocytes 8.9 % (1.7-9.3); % Neutrophils 64.6 % (42.2-75.2); Absolute Eosinophils 0.1 10^3/uL (0-0.7); Absolute Lymphocytes 1.5 10^3/uL (1.2-3.4); Absolute Monocytes 0.6 10^3/uL (0.1-0.6); Absolute Neutrophils 4.2 10^3/uL (1.4-6.5); Hematocrit 42.7 % (39.0-52.0); Hemoglobin 15.5 g/dL (13.0-18.0); Mean Corp Hgb Conc. 36.3 g/dL (33.0-37.0); Mean Corpuscular Hgb 31.6 pg (27.0-31.0); Mean Platelet Volume 10.4 fL (7.4-10.4); Nucleated Red Blood Cells % 0 % (-); Platelet Count 174 10^3/uL (130-400); Red Blood Cell Count 4.91 10^6/uL (4.70-6.10); Red Cell Dist. Width 12.4 % (11.5-14.5); White Blood Cell Count 6.4 10^3/uL (4.8-10.8)
[2024-07-23 14:45] LABS: ALT (SGPT) 20 U/L (0-50); AST (SGOT) 25 U/L (17-59); Albumin 4.5 g/dl (3.5-5.0); Alkaline Phosphatase 46 U/L (38-126); Blood Urea Nitrogen 18 mg/dl (9-20); Calcium 9.3 mg/dl (8.4-10.2); Carbon Dioxide 25 mmol/L (22-30); Chloride 108 mmol/L (98-107); Estimated Creatinine Clearance 91 ml/min; Glucose 110 mg/dl (70-99); Potassium 4.1 mmol/L (3.5-5.1); Sodium 142 mmol/L (135-145); Total Bilirubin 1.1 mg/dl (0.2-1.3); Total Protein 6.6 g/dl (6.3-8.2); eGFR > 60.00
[2024-07-23] MEDS: KEPPRA 500 MG IV (18:29)
[2024-07-23 18:56] LABS: INR 0.88; PT 12.3 Sec (11.4-14.6)
== END 2024-07-23 23:44 | disposition short-term general hospital (02) ==
LOC: EMR 13:29
PROVIDERS: Physician Assistant; EMERGENCY PHYSICIAN Emergency Medicine; FAMILY PHYSICIAN Physician Assistant
DX: S06.5XAA Traumatic subdural hemorrhage with loss of consciousness status unknown, initial encounter (principal); X58.XXXA Exposure to other specified factors, initial encounter; I10 Essential (primary) hypertension; E78.00 Pure hypercholesterolemia, unspecified; N40.0 Benign prostatic hyperplasia without lower urinary tract symptoms
CPT/HCPCS: 99291; 96374; 70450; 80053; 85025; 85610; 93005